=== PATIENT | male | born 1995 | race Caucasian/White ===

== ENCOUNTER 2018-01-28 03:53 | Emergency (ER) | payer OTHER ==
[2018-01-28 03:58] VITALS: BP 145/80
--- NOTE | 2018-01-28 04:42 | EDPHY ---
H & P Stated Complaint: MICHAEL Time Seen by Provider: 01/28/18 04:17 HPI/ROS: HPI The patient presents with headache which has been present for the last 1 day which started slowly upon awakening yesterday morning. This was associated with generalized malaise. The day prior, patient had had some diarrhea, however this resolved yesterday. The headache got progressively worse throughout the course of the day and is described as a squeezing, vice like sensation throughout his entire head. This is associated with nausea though no vomiting. He took aspirin just prior to arrival which has helped his symptoms. He was having difficulty sleeping because of the headache tonight. Denies any neck pain, fever, photophobia, neck stiffness. He does not have any weakness of his arms or legs or any changes to his vision or difficulty walking. He reports 1 prior similar headache over this summer which was caused by dehydration he believes. He does have a history of migraine-type headaches as a child which she has not had any of recently. REVIEW OF SYSTEMS 10 systems were reviewed and negative with the exception of the elements mentioned in the history of present illness. PMHx: History of migraines as a child Soc Hx: College student, from [place] FHx: No family history of headache PHYSICAL General Appearance: Alert, no distress Eyes: Pupils equal and round no pallor or injection ENT, Mouth: Mucous membranes moist, posterior pharynx is clear, TMs clear bilaterally Respiratory: There are no retractions, lungs are clear to auscultation Cardiovascular: Regular rate and rhythm Gastrointestinal: Abdomen is soft and non-tender, no masses, bowel sounds normal Neurological: Alert and oriented x3, cranial nerves 2-12 intact, 5/5 strength in upper and lower extremities which is symmetric Skin: Warm and dry, no rashes Musculoskeletal: Neck is supple non tender Extremities: symmetrical, full range of motion Psychiatric: Patient is oriented X 3, there is no agitation Source: Patient Exam Limitations: No limitations - Personal History Current Tetanus/Diphtheria Vaccine: Yes Current Tetanus Diphtheria and Acellular Pertussis (TDAP): Yes - Medical/Surgical History Hx Asthma: No Hx Chronic Respiratory Disease: No Hx Diabetes: No Hx Cardiac Disease: No Hx Renal Disease: No Hx Cirrhosis: No Hx Alcoholism: No Hx HIV/AIDS: No Hx Splenectomy or Spleen Trauma: No - Social History Smoking Status: Never smoked Constitutional: Initial Vital Signs Temperature (C) 36.5 C 01/28/18 03:56 Heart Rate 63 01/28/18 03:56 Respiratory Rate 16 01/28/18 03:56 Blood Pressure 145/80 H 01/28/18 03:56 O2 Sat (%) 97 01/28/18 03:56 O2 Delivery Mode Room Air Allergies/Adverse Reactions: No Known Allergies Allergy (Unverified 01/28/18 03:58) Medical Decision Making Differential Diagnosis: This is a 22-year-old male healthy college student who presents with 1 day of progressive squeezing type global headache associated with nausea. On exam, he is afebrile, he has a normal neurologic evaluation. Differential diagnosis includes tension type headache, migraine headache, sinusitis. I have considered brain mass, however his neurologic exam is normal , I have considered subarachnoid hemorrhage, however his headache is quite mild at this time. I do not think meningitis is likely without fever. I have discussed treatment with anti-inflammatories with him, encourage plenty of rest and fluids throughout the day. As if he does have ongoing headaches, he should be re-evaluated by his primary care doctor. Departure - Departure Disposition: Home, Routine, Self-Care Clinical Impression: Tension type headache Qualifiers: Headache chronicity pattern: acute headache Intractability: not intractable Qualified Code(s): G44.209 - Tension-type headache, unspecified, not intractable Condition: Good Instructions: Tension Headache (ED) Additional Instructions: I recommend you take ibuprofen 600 mg every 6 hr for your headache until it goes away. You should make sure to drink plenty of water. If the headache gets worse in any way, is associated with fever, weakness of your arms or legs or any change in your vision, you should return to the emergency department. Otherwise, I would like for you to follow up with your primary care doctor. Referrals: [facility],. [Clinic] - As per Instructions
== END 2018-01-28 04:52 | disposition home or self-care (01) ==
DX: G44.209 Tension-type headache, unspecified, not intractable (principal)